=== PATIENT | male | born 1980 | race Caucasian/White ===

== ENCOUNTER 2017-09-20 18:01 | Emergency (ER) | payer OTHER ==
[~2017-09-20] VITALS: Ht 180.3 cm; Wt 101.6 kg
[2017-09-20 18:08] VITALS: Ht 180.3 cm; Wt 101.6 kg
[2017-09-20 19:06] VITALS: BP 137/87
== END 2017-09-20 19:06 | disposition home or self-care (01) ==
LOC: ED 18:01
DX: K04.7 Periapical abscess without sinus (principal)
CPT/HCPCS: J0696; Q0162

== ENCOUNTER 2018-04-17 23:09 | Emergency (ER) | payer OTHER ==
[~2018-04-17] VITALS: Ht 180.3 cm; Wt 98.9 kg
[2018-04-17 23:41] VITALS: Ht 180.3 cm; Wt 98.9 kg
[2018-04-18 01:54] VITALS: BP 128/87
== END 2018-04-18 01:55 | disposition home or self-care (01) ==
LOC: ED 23:09
DX: M25.511 Pain in right shoulder (principal); G89.29 Other chronic pain; M10.9 Gout, unspecified; Z90.89 Acquired absence of other organs
CPT/HCPCS: J1885; J7512